=== PATIENT | female | born 1990 | race African-American/Black ===

== ENCOUNTER 2016-12-30 12:25 | Emergency (ER) | payer MEDICAID ==
[~2016-12-30] VITALS: Ht 167.6 cm; Wt 59.5 kg
[~2016-12-30 12:25] MED LIST: NOCURR
[2016-12-30 12:36] VITALS: BP 112/58
== END 2016-12-30 14:22 | disposition home or self-care (01) ==
LOC: EMS 12:26
DX: B35.4 Tinea corporis (principal); L29.9 Pruritus, unspecified
CPT/HCPCS: 99283